=== PATIENT | male | born 1975 | race Caucasian/White ===

== ENCOUNTER 2016-08-24 13:46 | Emergency (ER) | payer OTHER ==
[2016-08-24] MEDS ORDERED: ALLEGRA ALLERG180 M1 PO (13:58)
[2016-08-24] MEDS ORDERED: NORCO 5-325 TA1 EACH PO (15:46)
== END 2016-08-24 16:00 ==
LOC: EDMED 13:46
PROC: 0PSHXZZ Reposition Right Radius, External Approach (ICD-10-PCS; principal; 2016-08-24)
PROC: 0PSKXZZ Reposition Right Ulna, External Approach (ICD-10-PCS; 2016-08-24)
DX: S52.501A Unspecified fracture of the lower end of right radius, initial encounter for closed fracture (principal); S52.601A Unspecified fracture of lower end of right ulna, initial encounter for closed fracture; W19.XXXA Unspecified fall, initial encounter; Y93.67 Activity, basketball